=== PATIENT | female | born 1965 | race Caucasian/White ===

== ENCOUNTER → 2016-11-28 | Outpatient (CLI) | payer BC ==
[~2016-11-28] MED LIST: ATEN50TA8 PO; CALC600T9 PO; ESCI1TAB9 PO; MECLIZINE PO; MULT1CAP6 PO; SIMV20TA5 PO; TYLC/3 PO
--- NOTE | 2016-11-28 10:46 | DIAGNOSTIC IMAGING REPORT ---
THYROID ULTRASOUND HISTORY: Thyroid nodule NON TOXIC SINGLE THYROID NODULE COMPARISON: 06/11/2016 FINDINGS: Right lobe: Maximum dimension 5.7 cm. Internally internally heterogeneous. Mid and lower pole nodules measuring from 1. 62.7 cm. This is perhaps slightly increased in prominence from the prior study. A biopsy of the largest nodule should be considered if this is not been done on right. Left thyroid lobe remains 4.2 cm maximum dimension. It remains heterogeneous. IMPRESSION: Heterogeneous thyroid bilaterally with a mild increase in multifocal nodularity of the mid to lower aspect right thyroid. If Fine-needle aspiration has not been performed, this should be performed in the dominant nodule of the mid to right lower lobe. Electronically signed by: Dada Lane M.D. 11/28/2016 10:45 AM Dictated Date/Time: 11/28/2016 10:38 AM
== END | disposition home or self-care (01) ==
LOC: C.ULTR 09:29
PROVIDERS: ATTEND Family Medicine
DX: E04.1 Nontoxic single thyroid nodule (principal)

== ENCOUNTER → 2017-03-04 | Outpatient (CLI) | payer BC | END | disposition home or self-care (01) | LOC: C.PAPS 13:15 | PROVIDERS: ATTEND Obstetrics & Gynecology | DX: Z01.419 Encounter for gynecological examination (general) (routine) without abnormal findings (principal) ==

== ENCOUNTER → 2017-09-18 | Outpatient (CLI) | payer OTHER ==
--- NOTE | 2017-09-18 15:39 | DIAGNOSTIC IMAGING REPORT ---
L ELBOW MIN 3 VIEWS ROUTINE CLINICAL HISTORY: Bilateral elbow pain. COMPARISON: None FINDINGS: Alignment of the left elbow is anatomic. No fracture or joint effusion is identified. No osseous lesion is noted. IMPRESSION: Unremarkable left elbow radiographs. Electronically signed by: Cosmo Ramos M.D. 09/18/2017 3:37 PM Dictated Date/Time: 09/18/2017 3:36 PM
--- NOTE | 2017-09-18 15:42 | DIAGNOSTIC IMAGING REPORT ---
R ELBOW MIN 3 VIEWS ROUTINE CLINICAL HISTORY: M25.521,M54.2 pain COMPARISON: None. DISCUSSION: The bones and joint spaces appear intact. There is no evidence of fracture, dislocation or bony disease. There is no evidence for soft tissue swelling. IMPRESSION: Negative study. The above report was generated using voice recognition software. It may contain grammatical, syntax or spelling errors. Electronically signed by: Dada Lane M.D. 09/18/2017 3:41 PM Dictated Date/Time: 09/18/2017 3:40 PM
== END | disposition home or self-care (01) ==
LOC: C.RAD1850 15:19
PROVIDERS: ATTEND Family Medicine
DX: M25.521 Pain in right elbow (principal); M54.2 Cervicalgia

== ENCOUNTER → 2017-12-30 | Outpatient (CLI) | payer OTHER ==
--- NOTE | 2017-12-30 14:33 | MAMMOGRAPHY REPORT ---
BILATERAL DIGITAL SCREENING MAMMOGRAM TOMOSYNTHESIS WITH CAD: 12/30/2017 CLINICAL HISTORY: Routine screening. TECHNIQUE: Breast tomosynthesis in addition to standard 2D mammography was performed. Current study was also evaluated with a Computer Aided Detection (CAD) system. COMPARISON: Comparison is made to exams dated: 12/27/2016 mammogram, 12/19/2015 mammogram, 12/16/2014 ma mmogram, 12/15/2013 mammogram, 11/20/2012 mammogram, and 11/14/2011 mammogram - [facility] nter. BREAST COMPOSITION: The tissue of both breasts is heterogeneously dense, which may obscure small mas ses. FINDINGS: The glandular tissue pattern is similar to prior exams. There are scattered round and punc rg microcalcifications, stable in each breast. No suspicious mass, architectural distortion or clu ster of suspicious microcalcifications is seen. IMPRESSION: ACR BI-RADS CATEGORY 1: NEGATIVE There is no mammographic evidence of malignancy. A 1 year screening mammogram is recommended. The pa tient will receive written notification of the results. Approximately 10% of breast cancers are not detected with mammography. A negative mammographic report should not delay biopsy if a clinically suggestive mass is present. Milla Mauricio M.D. ay/:12/30/2017 12:32:24 Fare Register Repairer: Yulisa COLLINS)(Rosina), [facility] letter sent: Normal 1/2 BI-RADS Code: ACR BI-RADS Category 1: Negative
== END | disposition home or self-care (01) ==
LOC: C.MAMM 10:52
PROVIDERS: ATTEND Obstetrics & Gynecology
DX: Z12.31 Encounter for screening mammogram for malignant neoplasm of breast (principal)

== ENCOUNTER 2023-11-25 12:14 | Observation (INO) ==
[2023-11-25 13:00] LABS: Hematocrit (blood only) 42.6 % (37.0-47.0); Mean Corpuscular Hemoglobin 29.6 pg (25.0-34.0); Mean Corpuscular Hgb Conc 32.9 g/dL (32.0-36.0); Mean Corpuscular Volume 90.1 fL (80.0-100.0); Mean Platelet Volume 11.1 fL (9.4-12.4); Platelet Count 231 K/uL (130-400); RDW Coefficient of Variation 13.1 % (11.5-14.5); RDW Standard Deviation 43.1 fL (36.4-46.3); Red Blood Count 4.73 M/uL (4.20-5.40)
[2023-11-25 13:10] LABS: Partial Thromboplastin Ratio 0.9; Partial Thromboplastin Time 26 Seconds (21-31); Prothrombin Time 10.6 Seconds (9.0-12.0)
[2023-11-25 13:17] LABS: Albumin Globulin Ratio 1.6 (0.9-2); Albumin Level 4.6 gm/dl (3.4-5.0); BUN Creatinine Ratio 34.8 (10-20); Bilirubin,Total 0.4 mg/dl (0.2-1.0); Calcium 9.8 mg/dl (8.6-10.3); Creatinine Clr Calc Pharmacy 99.9 ml/min; Est GFR (African American) 112.9 ml/min; Est GFR (Non-African American) 97.4 ml/min; Globulin 2.9 gm/dl (2.5-4.0); Magnesium 2.1 mg/dl (1.7-2.4); Total Protein 7.5 gm/dl (6.0-8.3)
--- NOTE | 2023-11-25 13:23 | XRay Report ---
XR chest 1V not portable CLINICAL HISTORY: stroke alert TECHNIQUE: Single frontal radiograph of the chest was obtained. Comparison: Comparison is made to chest radiograph 09/17/2014 FINDINGS: No lines and tubes are seen. The cardiomediastinal silhouette is normal. The lungs are clear. No evid ence of pleural effusion or pneumothorax. IMPRESSION: No acute chest disease. ACT 112: Negative or not required by law. Electronically signed by: Gigi Pinto M.D. 11/25/2023 1:21 PM
--- NOTE | 2023-11-25 14:35 | Emergency Department Note ---
Impression & Plan Vertigo ED Provider Note NAME: FEDERICO COHEN AGE: 58 SEX: F : 1965 ARRIVES VIA: Walk-In INFORMANT: Patient, ED PROVIDER(S): Miller Ramsay MD CHIEF COMPLAINT: Lightheaded, room spinning HPI: This is a 58-year-old female with history of PCOS, hypertension presenting for lightheaded sensation. Patient notes on Saturday she started with symptoms that felt similar to when she was lightheaded. She felt there is any sensation when turning her head. She felt nauseous during this specifically when closing her eyes as well. She notes some palpitations sensation in her chest during this time. She notes last week she had a head cold. Otherwise she notes no shortness of breath, chest pain or fevers. She notes that her symptoms that spontaneously resolved but then recurred last evening and have been persistent since then. She notes that it is a lightheaded sensation as well as feeling that she is spinning only when she moves her head. She states she feels "woozy "otherwise. ROS: See above HPI for pertinent positives & negatives. A total of 10 systems reviewed and were otherwise negative. PAST MEDICAL HISTORY: See Below PAST SURGICAL HISTORY: See Below FAMILY HISTORY: See Below SOCIAL HISTORY: See Below HOME MEDICATIONS: See Below ALLERGIES: See Below VITALS: See Below PHYSICAL EXAMINATION: General: resting comfortably in no acute distress Head: Normocephalic and atraumatic Eyes: Normal inspection, extraocular muscles intact Ear, nose, throat: Normal external exam Neck: Normal range of motion Respiratory: lungs clear to auscultation bilaterally Cardiovascular: Regular rate/rhythm, no murmur GI: soft, nontender, no guarding or rebound Extremities: nontender, moves all extremities Neuro: The patient awake and alert, appropriately conversive, no focal deficits, symmetric faces, mild difficulty with left-sided [id number] Skin: Warm, dry, and intact MEDICAL DECISION MAKING: This is a 58-year-old female presenting for lightheaded sensation. Patient states it is both lightheaded as well as somewhat vertigo type sensation. She denies palpitations initially. Will do screening EKG, ACS workup, stroke workup. Patient has no current neurologic deficits. Does have slight rightward nystagmus. -Patient has mild finger-nose abnormality -Lab work is reviewed showing no significant abnormalities. -Given 1 L normal saline as well as meclizine without any improvement in her symptoms. Still vertiginous, feels mildly unstable on her feet. -Patient may have vestibular neuritis however must rule out central process. Will admit for further stroke workup. Differential diagnosis: Peripheral vertigo, Mnire's, vestibular neuritis, central vertigo ER treatment provided: See below Diagnostics interpreted by me: ECG: ECG independently interpreted by me with normal sinus rhythm, rate of 88, normal axis, normal DE, normal QRS, normal QTc, no ST segment elevations consistent with STEMI criteria Cardiac Monitoring: An order was placed for continuous cardiac monitoring. The monitor shows a rate of 77 with sinus rhythm. Laboratory studies: As stated above and show below. Imaging studies: See below. 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 Sleep apnea has cpap History of irritable bowel syndrome History of abnormal mammogram History of polycystic ovarian syndrome History of Lyme disease Surgical History S/P blepharoplasty 01/23/2022 Hx of removal of cyst right index finger History of endometrial ablation 2017 History of esophagogastroduodenoscopy (EGD) History of colonoscopy History of carpal tunnel surgery bilateral Status post surgical removal of ganglion cyst right foot History of tooth extraction History of cholecystectomy 1986 Family History Father Hyperlipidemia Mother Hyperlipidemia Father Myocardial infarction Mother Endometrial cancer Mother Hypertension Brother Hypertension Social History Smoking Status: Never smoker Second Hand Exposure: No; Do You Dip or Chew Tobacco: No; Hx Alcohol Use: Yes Alcohol type: wine Hx Substance Use: No Preferred Language: Malay Communication Ability: Effective Senior Technical Specialist Required: No Beliefs That Will Affect Care: None Current Living Situation: Spouse and Family Other Information That Helps Us Care for You: No Feels Safe at Home: Yes Assistive Devices: CPAP and Glasses Allergies Allergies Allergy/AdvReac Type Severity Reaction Status Date / Time duloxetine [From Cymbalta] AdvReac Severe sweating Verified 11/25/23 16:04 Home Meds Home Medications Medication Instructions Recorded Confirmed meclizine 25 mg tablet 25 mg PO TID PRN dizziness 03/25/20 11/25/23 atorvastatin 10 mg tablet 10 mg PO QPM 05/24/21 11/25/23 calcium carb-magnesium oxide-vit 400 tab PO QAM 01/17/22 11/25/23 D3 400 mg-167 mg-133 unit tablet (Calcium Magnesium + D) cannabidiol 100 mg/mL oral solution 0 mg PO QAM PRN pain 01/17/22 11/25/23 meloxicam 15 mg tablet 15 mg PO DAILY 03/18/23 11/25/23 multivitamin 1 tab PO DAILY 03/18/23 11/25/23 acetaminophen 500 mg tablet 500 - 1,500 mg PO Q6H PRN Pain 11/25/23 11/25/23 (Tylenol Extra Strength) black cohosh 200 mg capsule 0 mg PO DAILY 11/25/23 11/25/23 naltrexone 50 mg tablet 12.5 mg PO DAILY 11/25/23 11/25/23 ropinirole 0.5 mg tablet 0.5 mg PO HS 11/25/23 11/25/23 turmeric root extract 150 1 tab PO DAILY 11/25/23 11/25/23 mg-mandi root extract 25 mg chewable tablet Previous Rx's Medication Instructions Recorded bupropion HCl 150 mg 24 hr tablet, 150 mg PO DAILY #90 tabs 08/22/23 extended release Results & Data (ED) Vital Signs Vital Signs - 24 hr 11/25/23 12:18 11/25/23 13:40 11/25/23 14:30 Temperature 36.3 C L Temperature Source Temporal Artery Scan Pulse Rate 86 Pulse Rate [Left Apical] 79 81 Respiratory Rate 18 18 21 Respiratory Effort / Characteristics Non-Labored Non-Labored Spontaneous Non-Labored Spontaneous Respiratory Depth Normal Normal Normal Respiratory Pattern Regular Regular Blood Pressure 171/85 H Blood Pressure [Right Arm] 145/76 H 154/81 H Blood Pressure Mean 113 Blood Pressure Mean [Right Arm] 99 105 Blood Pressure Position [Right Arm] Semi-fowlers Pulse Oximetry 97 98 96 Oxygen Delivery Method Room Air Room Air Room Air Sepsis Recent Fever Within 48 Hours No Sepsis New/Unexplained Change in Mental Status N/A Sepsis Action Taken by Nursing No Action Required 11/25/23 15:20 11/25/23 16:00 11/25/23 16:01 Temperature Temperature Source Pulse Rate 78 91 H Pulse Rate [Left Apical] 85 Respiratory Rate 22 16 Respiratory Effort / Characteristics Non-Labored Respiratory Depth Normal Respiratory Pattern Blood Pressure 143/81 H Blood Pressure [Right Arm] 143/81 H Blood Pressure Mean 101 Blood Pressure Mean [Right Arm] 101 Blood Pressure Position [Right Arm] Pulse Oximetry 98 Oxygen Delivery Method Room Air Sepsis Recent Fever Within 48 Hours Sepsis New/Unexplained Change in Mental Status Sepsis Action Taken by Nursing 11/25/23 16:47 11/25/23 17:00 11/25/23 17:30 Temperature Temperature Source Pulse Rate 79 78 76 Pulse Rate [Left Apical] Respiratory Rate 18 15 17 Respiratory Effort / Characteristics Respiratory Depth Respiratory Pattern Blood Pressure 108/74 151/82 H 144/81 H Blood Pressure [Right Arm] Blood Pressure Mean 85 105 102 Blood Pressure Mean [Right Arm] Blood Pressure Position [Right Arm] Pulse Oximetry 97 98 97 Oxygen Delivery Method Room Air Room Air Room Air Sepsis Recent Fever Within 48 Hours Sepsis New/Unexplained Change in Mental Status Sepsis Action Taken by Nursing Laboratory Data 11/25/23 12:35 11/25/23 12:35 Lab Results 11/25/23 Range/Units 12:35 WBC 8.90 (4.8-10.8) K/ul RBC 4.73 (4.20-5.40) M/uL Hgb 14.0 (12.0-16.0) g/dl Hct 42.6 (37.0-47.0) % MCV 90.1 (80.0-100.0) fL MCH 29.6 (25.0-34.0) pg MCHC 32.9 (32.0-36.0) g/dL RDW Std Deviation 43.1 (36.4-46.3) fL RDW Coeff of Tobias 13.1 (11.5-14.5) % Plt Count 231 (130-400) K/uL MPV 11.1 (9.4-12.4) fL PT 10.6 (9.0-12.0) Seconds INR 1.0 (0.9-1.1) APTT 26 (21-31) Seconds PTT Ratio 0.9 Sodium 141 (136-145) mmol/L Potassium 4.0 (3.5-5.1) mmol/L Chloride 107 (98-107) mmol/L Carbon Dioxide 25 (21-32) mmol/L Anion Gap 9 (3-11) BUN 23 (6-23) mg/dl Creatinine 0.66 (0.6-1.2) mg/dl Est Cr Clr Drug Dosing 99.9 ml/min Est GFR ( Amer) 112.9 ml/min Est GFR (Non-Af Amer) 97.4 ml/min BUN/Creatinine Ratio 34.8 H (10-20) Glucose 122 H (70-99(Fasting)) mg/dl Calcium 9.8 (8.6-10.3) mg/dl Magnesium 2.1 (1.7-2.4) mg/dl Total Bilirubin 0.4 (0.2-1.0) mg/dl AST 22 (13-39) U/L ALT 14 (7-52) U/L Alkaline Phosphatase 71 (34-104) U/L Total Protein 7.5 (6.0-8.3) gm/dl Albumin 4.6 (3.4-5.0) gm/dl Globulin 2.9 (2.5-4.0) gm/dl Albumin/Globulin Ratio 1.6 (0.9-2) Administered Medications Ropinirole HCl (Ropinirole Hcl 0.25 Mg Tablet) 0.5 mg PO HS MATTHEW Stop: 12/25/23 20:59 Last Admin: 11/25/23 20:40 Dose: 0.5 mg Documented By: [facility] Discontinued Medications Sodium Chloride (Nss) 1,000 mls @ 999 mls/hr IV .Q1H1M ONE Stop: 11/25/23 15:29 Last Infusion: 11/25/23 17:39 Dose: Infused Documented By: Admin: 11/25/23 16:02 Dose: 999 mls/hr Documented By: LUDWIN Meclizine HCl (Meclizine Hcl 25 Mg Tab) 25 mg PO NOW STA Stop: 11/25/23 14:30 Last Admin: 11/25/23 14:36 Dose: 25 mg Documented By: [facility] Imaging Data Radiologist's Impression: Chest X-Ray 11/25/23 12:26 XR chest 1V not portable CLINICAL HISTORY: stroke alert TECHNIQUE: Single frontal radiograph of the chest was obtained. Comparison: Comparison is made to chest radiograph 09/17/2014 FINDINGS: No lines and tubes are seen. The cardiomediastinal silhouette is normal. The lungs are clear. No evidence of pleural effusion or pneumothorax. IMPRESSION: No acute chest disease. ACT 112: Negative or not required by law. Electronically signed by: Gigi Pinto M.D. 11/25/2023 1:[address] 11/25/23 14:19 CT OF THE HEAD WITHOUT CONTRAST CLINICAL HISTORY: Vertigo, difficulty with speaking COMPARISON STUDY: MRI of the brain March 31, 2020. CT DOSE: 547.75 mGy.cm TECHNIQUE: Helical axial images of the head were obtained without IV contrast. Automated exposure control was utilized for the study. A dose lowering technique was utilized adhering to the principles of ALARA. FINDINGS: No acute intracranial hemorrhage, midline shift or mass effect is present. The ventricular system is unremarkable. The basal cisterns are patent. No extra-axial collections are present. There are no findings to suggest acute dural sinus thrombosis or acute territorial infarct. No significant calvarial abnormalities are present. Visualized portions of the sinuses and mastoid air cells are clear. IMPRESSION: No acute intracranial findings. ACT 112: Negative or not required by law. Electronically signed by: Cosmo Ramos M.D. 11/25/2023 3:01 PM Brain MRI 11/25/23 17:40 MR brain wo con CLINICAL HISTORY: vertigo r/o post circ stroke TECHNIQUE: Multiplanar and multisequence MR images of the brain were obtained without intravenous contrast. Comparison: Comparison is made to MRI brain 04/10/[address] head 11/25/2023 FINDINGS: No abnormal restricted diffusion is identified. Foci of T2 and FLAIR hyperintensity are noted in the paraventricular areas consistent with chronic small vessel ischemic disease. The ventricular system is normal in appearance. No mass is seen. There is no mass effect or midline shift. There is no evidence of acute intraparenchymal hemorrhage. No extra axial fluid collections are seen. The corpus callosum, pituitary gland, and cerebellar tonsils appear grossly unremarkable. Flow voids of the major intracranial arterial vessels are identified. The imaged portions of the paranasal sinuses, mastoid air cells, and orbits are unremarkable. IMPRESSION: No evidence of acute infarct. There is T2 hyperintensity in the white matter compatible with chronic microischemic disease. ACT 112: Negative or not required by law. Electronically signed by: Gigi Pinto M.D. 11/25/2023 7:17 PM Discharge Plan Visit Data Chief Complaint: Dizziness Stated Complaint: HYPERTENSION, NAUSEA, SLURRED SPEECH ED Provider: Miller Ramsay Discharge Problem: Vertigo Patient Disposition: Admitted As Inpatient Discharge Instructions Interventions: ED Discharge Assessment Last Done: 11/25/23 18:51
[2023-11-25] MEDS: MECLIZINE HCL 25 MG TAB PO STA (14:36)
--- NOTE | 2023-11-25 15:02 | CT Scan Report ---
CT OF THE HEAD WITHOUT CONTRAST CLINICAL HISTORY: Vertigo, difficulty with speaking COMPARISON STUDY: MRI of the brain March 31, 2020. CT DOSE: 547.75 mGy.cm TECHNIQUE: Helical axial images of the head were obtained without IV contrast. Automated exposure con trol was utilized for the study. A dose lowering technique was utilized adhering to the principles o f ALARA. FINDINGS: No acute intracranial hemorrhage, midline shift or mass effect is present. The ventricular system is unremarkable. The basal cisterns are patent. No extra-axial collections are present. There are no findings to suggest acute dural sinus thrombosis or acute territorial infarct. No significant calvarial abnormalities are present. Visualized portions of the sinuses and mastoid air cells are laurence ar. IMPRESSION: No acute intracranial findings. ACT 112: Negative or not required by law. Electronically signed by: Cosmo Ramos M.D. 11/25/2023 3:01 PM
[2023-11-25] MEDS: SODIUM CHLORIDE 0.9% 1,000 ML IV ONE (16:02)
[2023-11-25] MEDS ORDERED: PHARMACIST DISCHARGE MED REC CONSULT PRN (17:40)
[2023-11-25] MEDS ORDERED: MAGNESIUM HYDROXIDE SUSP 30 ML UDC PO PRN (17:40)
[2023-11-25] MEDS ORDERED: ACETAMINOPHEN 325 MG TAB PO PRN (17:40)
[2023-11-25] MEDS ORDERED: ONDANSETRON INJ 2 MG/ML 2 ML VIAL IV PRN (17:40)
[2023-11-25] MEDS ORDERED: MECLIZINE HCL 25 MG TAB PO PRN (17:46)
--- NOTE | 2023-11-25 18:16 | History & Physical Report ---
Date of Service November 25, 2023 Assessment & Plan (1) Vertigo: Plan: Even though she calls it "dizziness", she is describing it as vertiginous spell with a sensation of the room spinning around her every time she moves her head She had cough and cold last week The ER physician was concerned about the possibility of a stroke Head CT was negative Labs were negative Ordered MRI of the brain Ordered a stroke workup including echocardiogram, telemetry Put her on aspirin, statin for the time being Ordered PT/OT to help with vertigo. The patient most likely has benign positional vertigo (2) Hyperlipidemia: Plan: She normally takes Lipitor 10 mg. Will increase the dose to 40 mg as she is being ruled out for stroke (3) Sleep apnea: Plan: Ordered CPAP (4) Polycystic ovarian syndrome: Plan: Not an active issue at this time (5) Hypertension: Plan: Will monitor blood pressure while she is in the hospital Recently she was taken off atenolol (6) Anxiety: Plan: Ordered bupropion, ropinirole History of Present Illness Chief Complaint: Dizziness Primary Care Provider: Angie Colon MD This is a 58-year-old female who presented to the emergency room with the above chief complaint. In brief, the patient has been having episodes of "dizziness" since 2 days ago. She describes this episode as a sensation of the room spinning around her every time she moves her head. She was also nauseated during the episode. The episode 2 days ago lasted for about 2 to 3 hours and resolved spontaneously. Yesterday, she had another similar episode but this time she was having dif ficulty bringing out words. This episode resolved on its own as well. During these episodes, she did not have any loss of consciousness, any weakness or numbness on any side of the body, loss of vision. This morning she called her PCP and was directed to come to the emergency room. Currently she says that moving her head triggers the "dizzy spells" where she feels like the room is spinning or she feels imbalanced. She denies any chest pain or shortness of breath. Past medical history 1. Benign essential hypertension. However she was recently taken off of atenolol as her blood pressure was doing well without it 2. Anxiety/depression for which she takes bupropion 3. Hyperlipidemia. On Lipitor 4. Obesity. She is on bupropion and naltrexone as a part of weight loss program 5. Factor V Leiden gene mutation. She says that she inherited 1 copy of gene and does not have both the genes for the disease. Allergies Allergy/AdvReac Type Severity Reaction Status Date / Time duloxetine [From Cymbalta] AdvReac Severe sweating Verified 11/25/23 16:04 Home Medications Medication Instructions Recorded Confirmed Type meclizine 25 mg tablet 25 mg PO TID PRN dizziness 03/25/20 11/25/23 History atorvastatin 10 mg tablet 10 mg PO QPM 05/24/21 11/25/23 History calcium carb-magnesium oxide-vit 400 tab PO QAM 01/17/22 11/25/23 History D3 400 mg-167 mg-133 unit tablet (Calcium Magnesium + D) cannabidiol 100 mg/mL oral solution 0 mg PO QAM PRN pain 01/17/22 11/25/23 History meloxicam 15 mg tablet 15 mg PO DAILY 03/18/23 11/25/23 History multivitamin 1 tab PO DAILY 03/18/23 11/25/23 History bupropion HCl 150 mg 24 hr tablet, 150 mg PO DAILY #90 tabs 08/22/23 11/25/23 Rx extended release acetaminophen 500 mg tablet 500 - 1,500 mg PO Q6H PRN Pain 11/25/23 11/25/23 History (Tylenol Extra Strength) black cohosh 200 mg capsule 0 mg PO DAILY 11/25/23 11/25/23 History naltrexone 50 mg tablet 12.5 mg PO DAILY 11/25/23 11/25/23 History ropinirole 0.5 mg tablet 0.5 mg PO HS 11/25/23 11/25/23 History turmeric root extract 150 1 tab PO DAILY 11/25/23 11/25/23 History mg-mandi root extract 25 mg chewable tablet Past Med/Surg History Medical History Nausea and vomiting after administration of anesthetic agent Polycystic ovarian syndrome Factor V Leiden one copy - 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 Anxiety Epilepsy pt stated mother said she had epilepsy until she was 2 years old Fibromyalgia Hypertension Mitral valve prolapse 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 Sleep apnea has cpap History of irritable bowel syndrome History of abnormal mammogram History of polycystic ovarian syndrome History of Lyme disease Surgical History S/P blepharoplasty 01/23/2022 Hx of removal of cyst right index finger History of endometrial ablation 2018 History of esophagogastroduodenoscopy (EGD) History of colonoscopy History of carpal tunnel surgery bilateral Status post surgical removal of ganglion cyst right foot History of tooth extraction History of cholecystectomy 1986 Family History Father Hyperlipidemia Mother Hyperlipidemia Father Myocardial infarction Mother Endometrial cancer Mother Hypertension Brother Hypertension Social History Smoking Status: Never smoker Second Hand Exposure: No; Do You Dip or Chew Tobacco: No; Hx Alcohol Use: Yes Alcohol type: wine Hx Substance Use: No Preferred Language: Georgian Communication Ability: Effective Manager Program Required: No Beliefs That Will Affect Care: None Current Living Situation: Spouse Feels Safe at Home: Yes Assistive Devices: CPAP, Glasses and Other Review of Systems Review of Systems: All systems reviewed & are unremarkable except as noted in Subjective Physical Exam Physical Exam: General appearance: Awake, conversant, able to answer questions appropriately. AOx3. Pupils: Equally reactive to light and accommodation Neck: No masses, no thyromegaly Respiration: Clear to auscultation bilaterally. Normal effort Cardiovascular: S1-S2/regular rate and rhythm. No murmur, rubs or gallop. No edema. Abdomen: Soft, nontender, nondistended. No hepatosplenomegaly Musculoskeletal: No clubbing, no cyanosis, normal range of motion Skin: No rashes, no nodules Neuro exam: Cranial nerves intact, sensation grossly intact. Finger-nose test intact. Heel ennis test intact. Psychiatric: Patient has good judgment and insight. AOx3. Mood and affect appear normal Lymphatics: No cervical or axillary lymphadenopathy noted Results & Data Results & Data Vital Signs (Past 12 Hours) Vital Signs Temp Pulse Pulse Resp BP BP Pulse Ox 11/25/23 18:00 77 21 157/90 H 100 11/25/23 17:30 76 17 144/81 H 97 11/25/23 17:00 78 15 151/82 H 98 11/25/23 16:47 79 18 108/74 97 11/25/23 16:01 85 16 143/81 H 98 11/25/23 16:00 91 H 22 143/81 H 11/25/23 15:20 78 11/25/23 14:30 81 21 154/81 H 96 11/25/23 13:40 79 18 145/76 H 98 11/25/23 12:18 36.3 C L 86 18 171/85 H 97 O2 Del Method 11/25/23 18:00 Room Air 11/25/23 17:30 Room Air 11/25/23 17:00 Room Air 11/25/23 16:47 Room Air 11/25/23 16:01 Room Air 11/25/23 16:00 11/25/23 15:20 11/25/23 14:30 Room Air 11/25/23 13:40 Room Air 11/25/23 12:18 Room Air Laboratory Results Abnormal lab results 11/25/23 Range/Units 12:35 BUN/Creatinine Ratio 34.8 H (10-20) Glucose 122 H (70-99(Fasting)) mg/dl Diagnostic Findings Chest X-Ray 11/25/23 12:26 XR chest 1V not portable CLINICAL HISTORY: stroke alert TECHNIQUE: Single frontal radiograph of the chest was obtained. Comparison: Comparison is made to chest radiograph 09/17/2014 FINDINGS: No lines and tubes are seen. The cardiomediastinal silhouette is normal. The lungs are clear. No evidence of pleural effusion or pneumothorax. IMPRESSION: No acute chest disease. ACT 112: Negative or not required by law. Electronically signed by: Gigi Pinto M.D. 11/25/2023 1:[address] 11/25/23 14:19 CT OF THE HEAD WITHOUT CONTRAST CLINICAL HISTORY: Vertigo, difficulty with speaking COMPARISON STUDY: MRI of the brain March 31, 2020. CT DOSE: 547.75 mGy.cm TECHNIQUE: Helical axial images of the head were obtained without IV contrast. Automated exposure control was utilized for the study. A dose lowering technique was utilized adhering to the principles of ALARA. FINDINGS: No acute intracranial hemorrhage, midline shift or mass effect is present. The ventricular system is unremarkable. The basal cisterns are patent. No extra-axial collections are present. There are no findings to suggest acute dural sinus thrombosis or acute territorial infarct. No significant calvarial abnormalities are present. Visualized portions of the sinuses and mastoid air cells are clear. IMPRESSION: No acute intracranial findings. ACT 112: Negative or not required by law. Electronically signed by: Cosmo Ramos M.D. 11/25/2023 3:01 PM Code Status & VTE Plan VTE Prophylaxis Plan VTE Prophylaxis will be ordered: Yes PG Care Time/CCT Total # of Minutes Spent Total Time Spent with Patient: Total time spent is greater than 50% in coordination of care (as documented) at patient's floor/unit and/or counseling patient: Coding Level of Care Code 22019 INT INP/OBS CARE 2/55MIN Diagnoses Vertigo R42 Hyperlipidemia E78.5 Sleep apnea G47.30 Polycystic ovarian syndrome E28.2 Hypertension I10 Anxiety F41.9
--- NOTE | 2023-11-25 19:19 | Magnetic Resonance Report ---
MR brain wo con CLINICAL HISTORY: vertigo r/o post circ stroke TECHNIQUE: Multiplanar and multisequence MR images of the brain were obtained without intravenous con trast. Comparison: Comparison is made to MRI brain 04/10/[address] head 11/25/2023 FINDINGS: No abnormal restricted diffusion is identified. Foci of T2 and FLAIR hyperintensity are noted in the paraventricular areas consistent with chronic small vessel ischemic disease. The ventricular system i s normal in appearance. No mass is seen. There is no mass effect or midline shift. There is no eviden ce of acute intraparenchymal hemorrhage. No extra axial fluid collections are seen. The corpus callos um, pituitary gland, and cerebellar tonsils appear grossly unremarkable. Flow voids of the major intracranial arterial vessels are identified. The imaged portions of the para nasal sinuses, mastoid air cells, and orbits are unremarkable. IMPRESSION: No evidence of acute infarct. There is T2 hyperintensity in the white matter compatible with chronic microischemic disease. ACT 112: Negative or not required by law. Electronically signed by: Gigi Pinto M.D. 11/25/2023 7:17 PM
--- OUTSIDE RECORDS SUMMARY | 2023-11-25 19:35 | External Medical Summary | Continuity of Care Document ---
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 Phone Angie Colon Primary Care Physician [phone] [id number] Date(s): 11/13/23 - 11/13/23 [facility] [address], [address] [place] [address] [phone] Encounter Diagnosis Fibromyalgia(Discharge Diagnosis) - 11/12/23 CARMINE (obstructive sleep apnea)(Discharge Diagnosis) - 11/13/23 Palpitation(Discharge Diagnosis) - 11/13/23 Restless legs syndrome (RLS)(Discharge Diagnosis) - 11/13/23 Chronic insomnia(Discharge Diagnosis) - 11/13/23 ETD (eustachian tube dysfunction)(Discharge Diagnosis) - 11/13/23 Combined hyperlipidemia(Discharge Diagnosis) - 11/12/23 Discharge Disposition: Home or Self Care Attending Physician: MD Colon Amy L Referring Physician: MD Colon Amy L Allergies, Adverse Reactions, Alerts Substance Reaction Severity Status Cymbalta excessive sweating Active Assessment and Plan Extracted from: Title:Office Visit Note Author:MD Colon Amy L D ate:11/13/23 1.Fibromyalgia STATUS: Chronic stable. DATA: hx & exam reviewed. GOAL: resolve pain, restore pain-free function. PLAN: discussed musculoskeletal sx. Cont same regimen of meds, per rheum. Continue rheum follow up. Continue to get good nutrition, adequate sleep & try to perform gentle exercise program, such as walking. 2.Palpitation STATUS : intermittent, worse. DATA : hx & exam reviewed. GOAL : maintain euvolemia, stable cardiac rhythm. PLAN : discussed obtaining labs & event monitor. However, she is concerned, because she's done event monitors in past, which have been normal. In addition, she is concerned because her father of sudden cardiac , which was caused by "something electrical." Will refer tocardiology. 3.CARMINE (obstructive sleep apnea) STATUS: Chronic, worse. DATA: hxreviewed. GOAL: Maintain nocturnal oxygenation, improve energy. PLAN: discussed nature of sleep apnea. Will refer to sleep med for more specific advice on mask & equipment. 4.Chronic insomnia STATUS: Chronic stable. DATA: sleep hx reviewed. GOAL: improve sleep quality. PLAN: reviewed principals of sleep hygiene, most of which she is already doing. Discussed meds, will follow with initiation of Ropinirole, as below. Cont current monitoring. 5.Restless legs syndrome (RLS) STATUS: new complaint,stable. DATA: hxreviewed. GOAL: relieve sx. PLAN: get CBC & TSH. Trial of Ropinirole 0.5mg qHS, ANGEL. Cont current monitoring. 6.ETD (eustachian tube dysfunction) STATUS: Chronic, stable. DATA: hx & examreviewed. Suspect that allergyis exacerbating ear sx. GOAL: control allergic sx. PLAN: advised onuse of OTC nasal steroid spray. 7.Combined hyperlipidemia STATUS : chronic, stable. DATA : diet & exercise reviewed. GOAL: improve metabolic profile. PLAN : continue atorvastatin & to monitor lifestyle. Get lipids & LFTs. Return in 3-4 months. Time:Total time spent with this patient on day of evaluation including chart review, ordering, education and coordination of care elements: _46 minutes Immunizations Given and Recorded Vaccine Date Status Refusal Reason influenza virus vaccine, inactivated 05/15/23 Give n influenza virus vaccine, inactivated 06/08/21 Cade rded influenza virus vaccine, inactivated 06/19/19 Give n influenza virus vaccine, inactivated 06/20/18 Give n influenza virus vaccine, inactivated 06/08/16 Give n influenza virus vaccine, inactivated 06/07/15 Give n influenza virus vaccine, inactivated 05/17/14 Give n influenza virus vaccine, inactivated 05/28/13 Give n SARS-CoV-2 mRNA (tozinameran 5y-11y) 12/21/21 Cade rded SARS-CoV-2 (COVID-19) mRNA-1273 vaccine 07/12/21 R ecorded SARS-CoV-2 (COVID-19) mRNA-1273 vaccine 12/15/20 R ecorded SARS-CoV-2 (COVID-19) mRNA-1273 vaccine 1 11/11/20 Recorded SARS-CoV-2 (COVID-19) mRNA-1273 vaccine 11/10/20 R ecorded tetanus/diphtheria/pertuss, acel (Tdap) 01/24/16 Vani dotson 1Result Comment: 2021-10-06: Historical information-source unspecified Medications atorvastatin 10 mg oral tablet Start: 09/27/23 7:42:00 EST, 1 tab, PO, Daily, Disp# 90 tab, Refills: 3, Pharmacy: [facility] Start Date: 09/27/23 Status: Ordered biotin Start: 03/13/17 10:42:00 Start Date: 03/13/17 Status: Ordered buPROPion 75 mg oral tablet Start: 04/15/23 11:22:00 EDT, 1 tab, PO, bid Start Date: 04/15/23 Status: Ordered calcium-vitamin D extended release Start: 02/23/13 13:04:00, 2 tab, PO, qAM Start Date: 02/23/13 Status: Ordered cannabidiol Start: 02/07/23 16:16:00 EDT Start Date: 02/07/23 Status: Ordered meclizine 25 mg oral tablet Start: 01/27/20 13:59:00 EDT, 1 tab, PO, tid, Disp# 30 tab, Refills: 1, PRN: as needed for dizziness, Pharmacy: [facility] [id number] [facility] Start Date: 01/27/20 Status: Ordered meloxicam 15 mg oral tablet Start: 05/31/22 13:37:00 EDT, 1 tab, PO, Daily Start Date: 05/31/22 Status: Ordered MVI-12 Start: 02/23/13 13:04:00, 1 tab, PO, Daily Start Date: 02/23/13 Status: Ordered rOPINIRole 0.5 mg oral tablet Start: 11/13/23 11:26:00 EDT, 1 tab, PO, Daily, Disp# 30 tab, Refills: 5, [facility] Start Date: 11/13/23 Status: Ordered Wellbutrin Start: 04/10/23 16:02:00 EDT, PO, bid Start Date: 04/10/23 Status: Ordered Mental Status 11/13/23 Barriers to Learning one year None evide nt Mandatory Health Literacy Documentation Yes Health Literacy Communication Barriers N ever Primary Language Bhutanese Problem List Condition Confirmation Course Effective Dates Status Health Status Informant Accidental fall Confirmed Active Acne Confirmed Active Allergic rhinitis Confirmed Active Benign paroxysmal vertigo Confirmed Active Chronic constipation Confirmed Active Chronic constipation Confirmed Active Chronic hypotension Confirmed Active Chronic insomnia Confirmed Active Chronic insomnia Confirmed Active Combined hyperlipidemia Confirmed Active Temporomandibular luxation Confirmed Active ETD (eustachian tube dysfunction) Confirmed Active Essential vertigo Confirmed Active Fatigue Confirmed Active Fibromyalgia Confirmed Active Fibromyalgia Confirmed Active Generalized anxiety disorder Confirmed Active H/O thoracic outlet syndrome Confirmed Active H/O: HTN (hypertension) Confirmed Active Factor 5 Leiden mutation, heterozygous Confirmed Active History of weight gain Confirmed Active HYPERTENSION Confirmed Active Lipoma of neck Confirmed Active Neck mass Confirmed Active Cervicalgia Confirmed Active CARMINE (obstructive sleep apnea) Confirmed Active Plantar fasciitis, right Confirmed Active POLYCYSTIC OVARIES Confirmed Active Right shoulder pain Confirmed Active Chronic pain in shoulder Confirmed Active Apnea, sleep Confirmed Active Constipation Confirmed Active Thoracic outlet syndrome Confirmed Active Weight disorder Confirmed Active Diagnosis Diagnosis Type Effective Dates Health Status Clinical Service Informant Combined hyperlipidemia Discharge Diagnosis 11/12/23 Fibromyalgia Discharge Diagnosis 11/12/23 CARMINE (obstructive sleep apnea) Discharge Diagnosis 11/13/23 Non-Specified Palpitation Discharge Diagnosis 11/13/23 Non-Specified Restless legs syndrome (RLS) Discharge Diagnosis 11/13/23 Non-Specified ETD (eustachian tube dysfunction) Discharge Diagnosis 11/13/23 Non-Specified Chronic insomnia Discharge Diagnosis 11/13/23 Non-Specified Procedures Procedure Date Related Diagnosis Body Site Status Mammogram 1 04/03/23 Completed X-ray of bone of ankle 2 07/25/22 Completed MRI of cervical spine 3 07/13/22 C ompleted Diagnostic mammogram 4 04/06/22 Co mpleted Mammogram - screening 5 04/02/22 C ompleted Shoulder X-ray 6 01/29/22 Complete d MRI of lumbar spine 7 09/14/21 Com pleted Mammogram 8 01/09/21 Completed Lumbothoracic spine X-ray 9 10/06/20 Completed MRI of brain without contrast 10 03/31/20 Completed Mammogram 11 01/07/20 Completed Elbow X-ray 12 09/28/19 Completed Sacrum X-ray 13 09/28/19 Completed Mammogram 14 01/02/19 Completed Mammogram 15 12/30/17 Completed Elbow X-ray 16 09/18/17 Completed Date of last PAP test 17 03/04/17 Completed Mammogram 18 12/27/16 Completed Ultrasound scan of thyroid 19 11/28/16 Completed US scan of thyroid 20 06/11/16 Com pleted Hysteroscopy with endometria l ablation 21 03/05/16 Completed Date of last PAP test 22 02/29/16 Completed Mammogram 23 12/19/15 Completed Right, left calcaneus x-ray 2 views 24 10/04/15 Completed Colonoscopy 25 09/19/15 Completed CXR - Chest X-ray 26 09/17/14 Comp leted Date of last PAP smear 27 01/07/14 Completed Mammogram 28 12/15/13 Completed mammogram 29 11/20/12 Completed Index finger 30 07/29/09 Completed Carpal tunnel 31 1989 Complete d Cholecystectomy 1986 Completed Oral surgery 1979 Completed Colonoscopy [address] [place] [address] IMPRESSION ACR Bl-RADS CATEGORY 1 NEGATIVE There is no mammographic evidence of malignancy A 1 year screening mammogram is recommended (04/03/2024 2Impression- No acute fractures are seen. There is a joint effusion with associated soft tissue swelling. Underlying sprain may be present. 3C3-4, C4-5, C5-6, C6-7 : all with disc protrusion, ligamentous thickening, uncovertebral & facet hypertrophy causing mild-mod central canal & neural foraminal stenosis. C7-T1 facet hypertrophy, mild bilat foraminal stenosis 41. Two small 1-2mm clusters of calcifications within the left upper outer quadrant appear stable compared to multiple prior exams including the 2018 exam and are considered benign given the morphology and emt intermediate stability. No new suspicious cluster of calcifications is noted on the additional mammographic images. 2. No evidence of architectural distortion within the right medial anterior breast on the additional mammographic images. Findings are benign and consistent with normal firoglandular tissue. 5ACR BI_RADS CATEGORY 0 INCOMPLETE EVALUATION : NEED ADDITIONAL IMAGINING EVALUATION . The possible grouped calcification in the left upper breast and questionable area of the architectural distortion in the medial , anterior right breast need additional imagining evaluation . 6right calcific bursitis 7L5-S1, L4-5, L3-4, L2-3 loss of disc height, disc protrusion, facet & ligamentous hypertrophy causing mild-moderat nerve impingment 8No mammographic evidence of malignancy. 1 year follow up recommended. 9mod scoliosis to right with osteopenia & mild osteophyte formation 10[facility] Impression: 1. No acute intracranial findings 2. No evidence of intracranial mass 3. No evidence of acute or subacute infarction 4. Minor cerebellar tonsillar ectopia 11IMPRESSION: ACR B-RADS CATEGORY 2: BENIGN There is no mammographic evidence of malignancy. A 1 year screening mammgoram is recommended. (01/07/2021) The patient will receive written notifcation of the results. 12No acute osseous injury. 13Mild apex dorsal angulation of the distal coccyx with equivocal surrounding periosteal reaction. Correlate with point tenderness and patient history to exclude a subacute fracture/subluxation. No acute fracture line identified. 14IMPRESSION: ACR BI-RADS CATEGORY 2: BENIGN There is no mammographic evidence of malignancy. A 1 year screening mammogram is recommended (01/03/2020). The patient will receive written notification of the results. 15[facility] Impression: ACR BI-RADS CATEGORY 1: NEGATIVE 1. No evidence of malignancy 16Negative study. 17Negative for intraepithelial lesion or malignancy. 18No mammographic evidence of malignancy. 1 year screening is recommended. 19Heterogeneous thyroid bilaterally with a mild increase in multifocal nodulairty of the mid to loweraspect right thyroid. If fine needle aspiration has not been performed, this should be performed inthe dominant nodule of the mid to right lower lobe. 20Heterogenerous thyroid tissue bilaterally. Possible poorly defined area of nodularity mid to superior aspect right thyroid. Fine-needle aspiration of this region could be considered 21Done for menorrhagia 22Negative for intraepithelial lesion or malignancy. 23There is no mammographic evidence of malignancy. A 1 year screening mammogram is recommended. 24[facility] Impression: 1. No significant calcaneal spurring on the left. Small/small to moderate plantar calcaneal spur onthe right 2. No acute bony abnormality observed in the calcaneus on either side 25Non-bleeding int. hemorrhoids, next C-scope in 10 yrs. 26Negative Study 27Negative 28No mammographic evidence of Malignancy 29WNL 30Mass 31Surgery 32Wisdom teeth removal 33Non bleeding internal hemorrhoids. No specimens collected. Resume previous diet. Vital Signs Most recent to oldest [Reference Range]: 1 Patient Weight 82.5 kg (11/13/23 10:59 AM) Heart Rate 86 bpm (11/13/23 10:59 AM) Respiratory Rate 18 br/min (11/13/23 10:59 AM) Blood Pressure 138/90mmHg (11/13/23 10:59 AM) Cuff Pulse Pressure 48 mmHg (11/13/23 10:59 AM) BP Location # 1 Left Arm (11/13/23 10:59 AM) Social History Social History Type Response Smoking Status Never smoked cigaret hope Sex Female FCM Outpt Note * MD Isaiah, Angie Arechiga: PERFORM Event Display: FCM Outpt Note Authored Date: Chief Complaint discuss dificulty sleeping, cpap fitting, reflux, fast HR, and skipping beats History of Present Illness Here forfollowing concerns : 1)CARMINE - she thinks that her mask is not fitting her correctly. She often wakes up thru night with her mouth open & feels like her stomach is blowing up with air. She doesn't feel that her sleep has improved at all since she started it. 2) Insomnia - has trouble going to sleep & staying asleep. She has tried all the sleep hygiene measures & all OTC meds. None have helped. She will see her 3) Heart rate fast - her pulse goes up to 100-120. When this happens, she sees her fast HR on hersmart watch. It feel fast, but not skipping. Not related to exertion. No associated sweating,dizziness, nausea or SOB. It can last for several hours, then will go away spontaneously. Had one episode of palpitations associated with 4) Both ears hurting - had cold sx for past few weeks, which are now gone. However, her ears are still clogged & sore. 5) RLS - her legs feel like they "have bugs crawling on them" at night when she's trying to go to sleep. This keeps her awake. 6) Family hx of dementia - her mother was dx'ed with Alz recently. She wanted to know what she could do to prevent it. Review of Systems Review of Systems- Constitutional: + fatigue & is intentionally losingweight. HEENT: no vision changes, improved sinus congestion. Respiratory: no cough, SOB, or wheezing. Cardiac: no chest pain, +palpitations, no pedal edema. GI: no abdominal pain, vomiting or change in bowel habits. : no dysuria. Neurologic: no headaches. Musculoskeletal: + musclepains. Physical Exam Vitals & Measurements HR:86(Monitored) RR:18 BP:138/90 SpO2:98% WT:82.5kg WT:82.500kg(Dosing) PHQ2 Data(Data Documented on:11/13/2023 10:59) Emotional health assessment NEGATIVE PE : Alert, in NAD. HEENT - PERRL. TM's - normal. Nares - clear. Oropharynx - normal. Neck - supple, without thyromegaly or lymphadenopathy. Lungs - clear, with good breath sounds bilaterally. Heart - RRR with I/ mid-systolicmurmur at LUSB. No pedal edema. Abdomen - +BS, soft, NT without HSM or mass. Neuro - alert & oriented, speech & cognition normal. Skin - warm & dry. Psych - affect appropriate. Assessment/Plan 1.Fibromyalgia STATUS: Chronic stable. DATA: hx & exam reviewed. GOAL: resolve pain, restore pain-free function. PLAN: discussed musculoskeletal sx. Cont same regimen of meds, per rheum. Continue rheum followup. Continue to get good nutrition, adequate sleep & try to perform gentle exercise program, such as walking. 2.Palpitation STATUS : intermittent, worse. DATA : hx & exam reviewed. GOAL : maintain euvolemia, stable cardiac rhythm. PLAN : discussed obtaining labs & event monitor. However, she is concerned, because she's done event monitors in past, which have been normal. In addition, she is concerned because her father of sudden cardiac , which was caused by "something electrical." Will refer tocardiology. 3.CARMINE (obstructive sleep apnea) STATUS: Chronic, worse. DATA: hxreviewed. GOAL: Maintain nocturnal oxygenation, improve energy. PLAN: discussed nature of sleep apnea. Will refer to sleep med for more specific advice on mask & equipment. 4.Chronic insomnia STATUS: Chronic stable. DATA: sleep hx reviewed. GOAL: improve sleep quality. PLAN: reviewed principals of sleep hygiene, most of which she is already doing. Discussed meds, will follow with initiation of Ropinirole, as below. Cont current monitoring. 5.Restless legs syndrome (RLS) STATUS: new complaint,stable. DATA: hxreviewed. GOAL: relieve sx. PLAN: get CBC & TSH. Trial of Ropinirole 0.5mg qHS, ANGEL. Cont current monitoring. 6.ETD (eustachian tube dysfunction) STATUS: Chronic, stable. DATA: hx & examreviewed. Suspect that allergyis exacerbating ear sx. GOAL: control allergic sx. PLAN: advised onuse of OTC nasal steroid spray. 7.Combined hyperlipidemia STATUS : chronic, stable. DATA : diet & exercise reviewed. GOAL: improve metabolic profile. PLAN : continue atorvastatin & to monitor lifestyle. Get lipids & LFTs. Return in 3-4 months. Time:Total time spent with this patient on day of evaluation including chart review, ordering, education and coordination of care elements: _46 minutes Problem List/Past Medical History Ongoing Accidental fall Acne Allergic rhinitis Apnea, sleep Benign paroxysmal vertigo Cervicalgia Chronic constipation Chronic constipation Chronic hypotension Chronic insomnia Chronic insomnia Chronic pain in shoulder Combined hyperlipidemia Constipation Essential vertigo ETD (eustachian tube dysfunction) Factor 5 Leiden mutation, heterozygous Fatigue Fibromyalgia Fibromyalgia Generalized anxiety disorder H/O thoracic outlet syndrome H/O: HTN (hypertension) History of weight gain HYPERTENSION Lipoma of neck Neck mass CARMINE (obstructive sleep apnea) Plantar fasciitis, right POLYCYSTIC OVARIES Right shoulder pain Temporomandibular luxation Thoracic outlet syndrome Weight disorder Historical Acne Acne vulgaris Acute foot pain ANXIETY Bilateral elbow joint pain. Bilateral foot pain Burn Chronic neck pain Finger swelling Foot mass Foot swelling Heel pain High cholesterol Hypermobility arthralgia Medial epicondylitis Palpitations PE (physical exam), routine Plantar fasciitis Plantar fasciitis Polyarthralgia Right thyroid nodule Stress Swelling of thyroid gland Tendonitis Thoracalgia Tightness in chest Procedure/Surgical History Mammogram| Service Date: 04/03/2023X-ray of bone of ankle| Service Date: 07/25/2022MRI of cervical spine| Service Date: 07/13/2022iagnostic mammogram| Service Date: 04/06/2022Mammogram - screening| Service Date: 04/02/2022[place]oulder X-ray| Service Date: 01/29/2022MRI of lumbar spine| Service Date: 09/14/2021Mammogram| Service Date: 1Lumbothoracic spine X-ray| Service Date: 10/06/2020MRI of brain without contrast| Service Date: 03/31/2020Mammogram| Service Date: 01/07/2020Elbow X-ray| Service Date: 09/28/2019Sacrum X-ray| Service Date: 09/28/2019Mammogram| Service Date: 01/02/2019Mammogram| Service Date: 12/30/2017Elbow X-ray| Service Da te: 09/18/2017Date of last PAP test| Service Date: 03/04/2017Mammogram| Service Date: 12/27/2016Ultrasound scan of thyroid| Service Date: 11/28/2016US scan of thyroid| Service Date: 06/11/2016Hysteroscopy with endometrial ablation| Service Date: 03/05/2016Date of last PAP test| Service Date: 02/29/2016Mammogram| Service Date: 12/19/2015Right, left calcaneus x-ray 2 views| Service Date: 10/04/2015CXR - Chest X-ray| Service Date: 09/17/2014Date of last PAP smear| Service Date: 01/07/2014Mammogram| Service Date: 12/15/2013mammogram| Service Date: 11/20/2012Index finger| Service Date: 07/29/2009Carpal tunnel| Service Date: 1989Cholecystectomy| Service Date: 1986Oral surgery| Service Date: 1979Colonoscopy Medications atenolol(atenolol 25 mg oral tablet), 12.5 mg= 0.5 tab, PO, Daily atorvastatin(atorvastatin 10 mg oral tablet), 1 tab, PO, Daily biotin buPROPion(Wellbutrin), PO, bid buPROPion(buPROPion 75 mg oral tablet), 75 mg= 1 tab, PO, bid calcium and vitamin D combination(calcium-vitamin D extended release), 2 tab, PO, qAM cannabidiol escitalopram(escitalopram 10 mg oral tablet), See Instructions meclizine(meclizine 25 mg oral tablet), 25 mg= 1 tab, PO, tid, PRN, 1 refills meloxicam(meloxicam 15 mg oral tablet), 15 mg= 1 tab, PO, Daily multivitamin(MVI-12), 1 tab, PO, Daily rOPINIRole(rOPINIRole 0.5 mg oral tablet), 0.5 mg= 1 tab, PO, Daily, 5 refills Allergies Cymbaltaexcessive sweating Social History Smoking Status Never smoked cigarettes Alcohol Use:Current Type:Wine Frequency:1-2 times per month Employment/School - No Risk Status:Employed Description:[employer] Exercise - Occasional exercise Duration (average number of minutes):45 Times per week:3-4 times/week Exercise type:Walking Home/Environment - No Risk Lives with:Spouse Other risks in environment:Pets/Animal exposure - Comments: 2 Dogs, 2 cats Nutrition/Health - No Risk Substance Abuse - Denies Substance Abuse Tobacco - Denies Tobacco Use Use:Never smoker Family History Alzheimer disease: MGF. Arthritis: PGM. Cardiovascular disease: Father and MGM. Heart Failure: Mother. Rheumatoid arthritis: MGF. Health Status Family Member(s) Immunizations Vaccine Date Status influenza virus vaccine, inactivated 05/15/2023 Given SARS-CoV-2 mRNA (tozinameran 5y-11y) 12/21/2021 Recorded SARS-CoV-2 (COVID-19) mRNA-1273 vaccine 07/12/2021 Recorded influenza virus vaccine, inactivated 06/08/2021 Recorded SARS-CoV-2 (COVID-19) mRNA-1273 vaccine 12/15/2020 Recorded SARS-CoV-2 (COVID-19) mRNA-1273 vaccine 11/11/2020 Recorded Comments : 2021-10-06: Historical information-source unspecified SARS-CoV-2 (COVID-19) mRNA-1273 vaccine 11/10/2020 Recorded influenza virus vaccine, inactivated 06/19/2019 Given influenza virus vaccine, inactivated 06/20/2018 Given influenza virus vaccine, inactivated 06/08/2016 Given tetanus/diphtheria/pertuss, acel (Tdap) 01/24/2016 Given influenza virus vaccine, inactivated 06/07/2015 Given influenza virus vaccine, inactivated 05/17/2014 Given influenza virus vaccine, inactivated 05/28/2013 Given Recommendations Health Maintenance Pending(in the next year) Due Adult Social Determinants of Health Screening due11/13/23Unknown Frequency Hepatitis C Screening due11/13/23One-time only Shingles Vaccine due11/13/23One-time only Due In Future Adult Influenza Vaccine not due until02/23/24and every 1year Satisfied(in the past 1 year) Satisfied Adult Influenza Vaccine on05/15/23.Satisfied by ARON Pyle Karli R Body Mass Index on01/15/23.Satisfied by ARON Horton Kennie L Breast Cancer Screening on04/04/23.Satisfied by ARON Mccabe Andrew E Electronic Signature on File Electronically Reviewed/Signed by: Angie Colon MD Author Signature Dt/Tm:11/13/2023 12:14 PM [employer] [facility] [address] [place] [address] [facility] Patient Care team information Care Team Personnel Name: MD Isaiah, Angie Arechiga Position: Physician - Family Med Member Role: Primary Care Provider Address: Address: [address] [place] [address], [place] [address] [place] Care Team Related Persons Name: HOA COHEN Address: home [address], [place] [id number] Name: HOA COHEN Address: home [address], [place] [id number] Name: YESSENIA ELDER Address: home [address] [place], [place] [id number]
[2023-11-25] MEDS: rOPINIRole HCL 0.25 MG TABLET PO SCH (20:40)
[2023-11-26] MEDS ORDERED: MELATONIN 3 MG TAB PO PRN (02:34)
[2023-11-26] MEDS: LORazepam 0.5 MG TAB PO STA (02:46)
[2023-11-26 04:25] LABS: Basophils # (auto) 0.06 K/uL (0.00-0.20); Basophils % (auto) 0.9 %; Eosinophils # (auto) 0.16 K/uL (0.00-0.50); Eosinophils % (auto) 2.3 %; Hematocrit (blood only) 36.5 % (37.0-47.0); Hemoglobin 12.1 g/dl (12.0-16.0); Immature Granulocytes # (auto) 0.03 K/uL (0.01-0.20); Immature Granulocytes % (auto) 0.4 %; Lymphocytes # (auto) 2.57 K/uL (1.20-3.40); Mean Corpuscular Hemoglobin 29.4 pg (25.0-34.0); Mean Corpuscular Hgb Conc 33.2 g/dL (32.0-36.0); Mean Corpuscular Volume 88.6 fL (80.0-100.0); Mean Platelet Volume 10.9 fL (9.4-12.4); Monocytes # (auto) 0.63 K/uL (0.11-0.59); Monocytes % (auto) 9.1 %; Neutrophils # (auto) 3.49 K/uL (1.40-6.50); Neutrophils % (auto) 50.3 %; Platelet Count 203 K/uL (130-400); RDW Standard Deviation 42.5 fL (36.4-46.3); Red Blood Count 4.12 M/uL (4.20-5.40); White Blood Count 6.94 K/ul (4.8-10.8)
[2023-11-26 04:41] LABS: BUN Creatinine Ratio 28.3 (10-20); Calcium 9.2 mg/dl (8.6-10.3); Chol HDL Ratio 3.3 (0-5); Est GFR (African American) 116.4 ml/min; Est GFR (Non-African American) 100.5 ml/min; Potassium 4.3 mmol/L (3.5-5.1)
[2023-11-26 07:04] LABS: Estimated Average Glucose 117 mg/dl; Hemoglobin A1C 5.7 % (4.5-5.6)
[2023-11-26] MEDS: NALTREXONE HCL 50 MG TAB PO SCH (08:48)
[2023-11-26] MEDS: ASPIRIN 81 MG ECTAB PO SCH (08:48)
[2023-11-26] MEDS: buPROPion XL 150 MG TABCR PO SCH (08:48)
[2023-11-26] MEDS: ATORVASTATIN 40 MG TAB PO SCH (08:50)
[2023-11-26] MEDS: ENOXAPARIN INJ 40 MG/0.4 ML SYR SQ SCH (08:51)
[2023-11-26] MEDS: amLODIPine BESYLATE 5 MG TAB PO SCH (10:55)
[2023-11-26] MEDS: OPTIRAY 320 125ml IV ONE (11:39)
--- NOTE | 2023-11-26 11:49 | XCELERA ---
[id number] \\[id number]
--- NOTE | 2023-11-26 12:31 | CT Scan Report ---
CT angio neck with con CLINICAL HISTORY: 58 years-old Female with stroke w/u. Acute strokelike symptoms COMPARISON STUDY: Brain MRI 11/25/2023 TECHNIQUE: Following the IV administration of 118 of Optiray, CT angiogram of the neck was performed from the aortic arch to the skull base. Images are reviewed in the axial, sagittal, and coronal plane s. 3-D MIPS images are created and assessed. IV contrast was administered without complication. All m easurements were calculated based on NASCET criteria. A dose lowering technique was utilized adherin g to the principles of ALARA. CT DOSE: 399.31 mGy.cm FINDINGS: Three-vessel morphology of the thoracic aortic arch. Patency of the innominate and image subclavian a rteries. Patent common carotid arteries. Moderate atherosclerosis of the carotid bulbs without signif icant stenosis. The internal carotid arteries are patent. Patent vertebral arteries. There is no aneu rysm, dissection, high-grade stenosis or arterial occlusion identified. The imaged intracranial struc tures demonstrate no acute abnormality. Lung apices are clear. Multinodular goiter. 1.2 x 0.9 cm left sided cervical chain lymph node on imag e 183 series 4 is nonspecific. Degenerative changes of the cervical spine. No acute fracture. Develop mental incomplete bony fusion involves the posterior arch of C1. Left-sided cervical rib. IMPRESSION:Unremarkable CTA of the neck. ACT 112: Negative or not required by law. The above report was generated using voice recognition software. It may contain grammatical, syntax o r spelling errors. Electronically signed by: Genaro Child M.D. 11/26/2023 12:30 PM
[2023-11-26] MEDS ORDERED: STROKE PATIENT DISCHARGE STA (12:37)
--- NOTE | 2023-11-26 12:37 | Discharge Summary ---
Date of Service November 26, 2023 Admission HPI Per Admitting Provider This is a 58-year-old female who presented to the emergency room with the above chief complaint. In brief, the patient has been having episodes of "dizziness" since 2 days ago. She describes this episode as a sensation of the room spinning around her every time she moves her head. She was also nauseated during the episode. The episode 2 days ago lasted for about 2 to 3 hours and resolved spontaneously. Yesterday, she had another similar episode but this time she was having difficulty bringing out words. This episode resolved on its own as well. During these episodes, she did not have any loss of consciousness, any weakness or numbness on any side of the body, loss of vision. This morning she called her PCP and was directed to come to the emergency room. Currently she says that moving her head triggers the "dizzy spells" where she feels like the room is spinning or she feels imbalanced. She denies any chest pain or shortness of breath. Past medical history 1. Benign essential hypertension. However she was recently taken off of atenolol as her blood pressure was doing well without it 2. Anxiety/depression for which she takes bupropion 3. Hyperlipidemia. On Lipitor 4. Obesity. She is on bupropion and naltrexone as a part of weight loss program 5. Factor V Leiden gene mutation. She says that she inherited 1 copy of gene and does not have both the genes for the disease. Admission Exam Per Admitting Provider General appearance: Awake, conversant, able to answer questions appropriately. AOx3. Pupils: Equally reactive to light and accommodation Neck: No masses, no thyromegaly Respiration: Clear to auscultation bilaterally. Normal effort Cardiovascular: S1-S2/regular rate and rhythm. No murmur, rubs or gallop. No edema. Abdomen: Soft, nontender, nondistended. No hepatosplenomegaly Musculoskeletal: No clubbing, no cyanosis, normal range of motion Skin: No rashes, no nodules Neuro exam: Cranial nerves intact, sensation grossly intact. Finger-nose test intact. Heel ennis test intact. Psychiatric: Patient has good judgment and insight. AOx3. Mood and affect appear normal Lymphatics: No cervical or axillary lymphadenopathy noted Principal Diagnosis Benign positional vertigo Discharge Exam General: Awake, conversant Heart: S1, S2/regular rate and rhythm, no murmur rubs or gallops Lungs: Clear to auscultation bilaterally. Normal effort Abdomen: Soft/nontender/nondistended. No hepatosplenomegaly Extremities: No clubbing/cyanosis. No edema Behavior: Appropriate, cooperative Discharge Data Allergies Allergy/AdvReac Type Severity Reaction Status Date / Time duloxetine [From Cymbalta] AdvReac Severe sweating Verified 11/25/23 16:04 Consultations 11/25/23 17:37 ED Decision to Admit Stat Ordered Studies 11/25/23 14:19 CT head/brain wo con Stat 11/25/23 17:40 MR brain wo con Routine 11/26/23 11:03 CTA neck with con [CT angio neck with con] Urgent Hospital Course (1) Vertigo: Even though she calls it "dizziness", she is describing it as vertiginous spell with a sensation of the room spinning around her every time she moves her head She had cough and cold last week The ER physician was concerned about the possibility of a stroke Head CT was negative Labs were negative MRI of the brain was negative CT angio of the neck was negative Echocardiogram was negative Telemetry did not show any arrhythmia Essentially all stroke workup was negative This most likely was an episode of benign positional vertigo given her recent viral illness Her symptoms have remarkably improved today She is not imbalance when she walks She is deemed stable for discharge (2) Hyperlipidemia: She normally takes Lipitor 10 mg. Discharged on her home dose of Lipitor (3) Sleep apnea: CPAP (4) Polycystic ovarian syndrome: Not an active issue at this time (5) Hypertension: During the hospital stay, the patient was noted to be hypertensive Moreover her echocardiogram showed signs of left ventricular hypertrophy I started her on low-dose amlodipine Advised her to check her blood pressure at home before her PCP appointment (6) Anxiety: Ordered bupropion, ropinirole Total Time Total Time Spent Total Time Spent (In Minutes): 35 Discharge Plan Discharge Items Patient Disposition: Home - Self-Care Reason For Visit: DIZZINESS Discharge Diagnosis: Benign Positional Vertigo Condition on Discharge: Good Activity: Resume your previous activity Non-emergency contact: Primary Care Provider Call non-emergency contact if: you have any medication questions and your symptoms worsen Follow-up/Referrals: Angie Colon MD [Primary Care Provider] - Diet: Heart Healthy Addtl Attending Provider Instructions: - Advised to follow-up with your PCP in 1 week Pending Studies at Discharge: No Stand-Alone Forms: My [facility] Medications and DC Order Prescriptions: New amlodipine 5 mg tablet 5 mg PO DAILY Qty: 30 0RF Continued meclizine 25 mg tablet 25 mg PO TID PRN (Reason: dizziness) bupropion HCl 150 mg tablet extended release 24 hr 150 mg PO DAILY Qty: 90 1RF atorvastatin 10 mg tablet 10 mg PO QPM multivitamin Tablet 1 tab PO DAILY meloxicam 15 mg tablet 15 mg PO DAILY Calcium Magnesium + D 400-167-133 mg-mg-unit Tablet 400 tab PO QAM cannabidiol 100 mg/mL Solution 0 mg PO QAM PRN (Reason: pain) acetaminophen [Tylenol Extra Strength] 500 mg Tablet 500 - 1,500 mg PO Q6H PRN (Reason: Pain) ropinirole 0.5 mg tablet 0.5 mg PO HS black cohosh 200 mg Capsule 0 mg PO DAILY Rx Instructions: PT UNSURE OF STRENGTH turmeric root-mandi root ext 150-25 mg Tablet,Chewable 1 tab PO DAILY naltrexone 50 mg tablet 12.5 mg PO DAILY Rx Instructions: TAKES 1/4 OF A TABLET Discharge Orders: Discharge Order (Routine); Ordered 11/26/23 Ordered By: Shad Neumann Admission Data Admit Date/Time: 11/25/23 17:41 Attending Provider: Shad Neumann Admit Provider: Shad Neumann Primary Care Provider: Angie Colon Other Providers: Shad Neumann Other Interventions: Discharge Summary Assessment (RN) Last Done: 11/26/23 13:25 Coding Level of Care Code 89063 INP/OBS DISCH >30 MIN Diagnoses Vertigo R42 Hyperlipidemia E78.5 Sleep apnea G47.30 Polycystic ovarian syndrome E28.2 Hypertension I10 Anxiety F41.9
--- NOTE | 2023-11-27 13:49 | Electrocardiogram Report ---
Test Reason : Blood Pressure : / mmHG Vent. Rate : 088 BPM Atrial Rate : 088 BPM P-R Int : 158 ms QRS Dur : 084 ms QT Int : 342 ms P-R-T Axes : 049 038 040 degrees QTc Int : 413 ms Normal sinus rhythm Septal infarct , age undetermined Abnormal ECG When compared with ECG of 05-JAN-2022 15:46, Septal infarct is now Present Confirmed by Wolf Aguilar ([id number]) on 11/27/2023 1:48:19 PM Referred By: REFERRED SELF Confirmed By:Wolf Aguilar
--- NOTE | 2023-11-28 07:11 | Electrocardiogram Report ---
Test Reason : Blood Pressure : / mmHG Vent. Rate : 070 BPM Atrial Rate : 070 BPM P-R Int : 194 ms QRS Dur : 092 ms QT Int : 400 ms P-R-T Axes : 050 026 021 degrees QTc Int : 432 ms Normal sinus rhythm Normal ECG When compared with ECG of 25-NOV-2023 12:33, (unconfirmed) Criteria for Septal infarct are no longer Present Confirmed by Wolf Aguilar ([id number]) on 11/28/2023 7:10:35 AM Referred By: REFERRED SELF Confirmed By:Wolf Aguilar
== END 2023-11-26 13:41 | disposition home or self-care (01) ==
LOC: ED 12:14 → EDINP 12:14